=== PATIENT | female | born 1955 | race Hispanic/Latino ===

== ENCOUNTER 2018-03-10 23:37 | Emergency (ER) | payer OTHER ==
[2018-03-11 00:50] VITALS: BMI 28.0
--- NOTE | 2018-03-11 00:53 | ED PDOC ---
Arrival/HPI - General Historian: Patient - History of Present Illness Time/Duration: Other (7PM last night) Symptom Onset: Gradual Symptom Course: Unchanged Activities at Onset: Light Context: Home - General Chief Complaint: Female Genitourinary Time Seen by Provider: 03/10/18 23:58 - History of Present Illness Narrative History of Present Illness (Text): 03/11/18 00:47 62 year old female, whose past medical history includes hypertension, hyperlipidemia, hyperthyroidism, and chronic herpes on chronic suppressive therapy on Valtrex, presents to the emergency department complaining of urinary frequency and urinary urgency that began 7pm last night. Patient states this feels like her usual UTI. Patient does not have any flank or abdominal pain. Patient is not on any blood thinners or anti-coagulants. Patient denies any fever, chills, or any other complaints. (Salvador Roberts) Past Medical History - Provider Review Nursing Documentation Reviewed: Yes - Infectious Disease Hx of Infectious Diseases: None - Cardiac Hx Cardiac Disorders: Yes Hx Hypertension: Yes - Pulmonary Hx Respiratory Disorders: No - Neurological Hx Neurological Disorder: No - HEENT Hx HEENT Disorder: No - Renal Hx Renal Disorder: No - Endocrine/Metabolic Hx Endocrine Disorders: Yes Hx Hypothyroidism: Yes - Hematological/Oncological Hx Blood Disorders: No - Integumentary Hx Dermatological Disorder: No - Musculoskeletal/Rheumatological Hx Musculoskeletal Disorders: No - Gastrointestinal Hx Gastrointestinal Disorders: No - Genitourinary/Gynecological Hx Genitourinary Disorders: Yes Hx Urinary Tract Infection: Yes Other/Comment: Herpes - Psychiatric Hx Psychophysiologic Disorder: No Hx Substance Use: No Family/Social History - Physician Review Nursing Documentation Reviewed: Yes Family/Social History: No Known Family HX Smoking Status: Never Smoked Hx Alcohol Use: Yes Frequency of alcohol use: Socially Hx Substance Use: No Allergies/Home Meds Allergies/Adverse Reactions: Allergies No Known Allergies Allergy (Verified 03/11/18 00:49) Home Medications: Home Meds Medication Instructions Recorded Confirmed Hydrochlorothiazide [Microzide] 12.5 mg PO DAILY 03/11/18 03/11/18 Levothyroxine [Synthroid] 100 mcg PO DAILY 03/11/18 03/11/18 Metoprolol Succinate XL [Toprol XL] 50 mg PO DAILY 03/11/18 03/11/18 valACYclovir [Valtrex] 500 mg PO DAILY 03/11/18 03/11/18 Review of Systems - Physician Review All systems were reviewed & negative as marked: Yes - Review of Systems Constitutional: absent: Fatigue, Fevers Eyes: absent: Vision Changes ENT: absent: Hearing Changes, Rhinorrhea Respiratory: absent: SOB, Cough, Sputum Cardiovascular: absent: Chest Pain Gastrointestinal: absent: Abdominal Pain, Nausea, Vomiting Genitourinary Female: Frequency, Other (Urinary urgency). absent: Vaginal Bleeding, Vaginal Discharge Musculoskeletal: absent: Arthralgias, Back Pain Skin: absent: Rash, Pruritis Neurological: absent: Headache, Dizziness Physical Exam Vital Signs Reviewed: Yes Temperature: Afebrile Blood Pressure: Hypertensive Pulse: Regular Respiratory Rate: Normal Appearance: Positive for: Well-Appearing, Non-Toxic, Comfortable Pain Distress: None Mental Status: Positive for: Alert and Oriented X 3 - Systems Exam Head: Present: Atraumatic, Normocephalic Pupils: Present: PERRL Extroacular Muscles: Present: EOMI Conjunctiva: Present: Normal Mouth: Present: Moist Mucous Membranes Neck: Present: Normal Range of Motion Respiratory/Chest: Present: Clear to Auscultation, Good Air Exchange. No: Respiratory Distress, Accessory Muscle Use Cardiovascular: Present: Regular Rate and Rhythm, Normal S1, S2. No: Murmurs Abdomen: No: Tenderness, Distention, Peritoneal Signs, Rebound, Guarding Back: Present: Normal Inspection Upper Extremity: Present: Normal Inspection. No: Cyanosis, Edema Lower Extremity: Present: Normal Inspection. No: Edema Neurological: Present: GCS=15, CN II-XII Intact, Speech Normal Skin: Present: Warm, Dry, Normal Color. No: Rashes Psychiatric: Present: Alert, Oriented x 3, Normal Insight, Normal Concentration Vital Signs Temp Pulse Resp BP Pulse Ox 03/11/18 02:37 98.3 F 72 17 150/74 100 03/11/18 02:30 98.3 F 72 17 150/74 100 03/11/18 00:56 98.3 F 70 16 161/93 H 99 Medical Decision Making - Lab Interpretations I have reviewed the lab results: Yes ED Course and Treatment: 03/11/18 00:54 Impression: 62 year old female presents complaining of urinary frequency and urinary urgency that began 7PM yesterday. Patient reports symptoms similar to her usual UTI Plan: -- Urinalysis -- Reassess and disposition Progress Notes: 03/11/18 01:47 -UA show +UTI -Rocephine 1gm IM ordered -Discharge home with keflex/pyridium, stay hydrated, follow up with your own pmd and urologist within 2 days, return to the ER for any new or worsening signs or symptoms. (Salvador Roberts) - Lab Interpretations Lab Results: Lab Results 03/11/18 00:57: Urine Color Red, Urine Appearance Bloody, Urine pH 7.0, Ur Specific Gates 1.010, Urine Protein >=300 H, Urine Glucose (UA) 100 H, Urine Ketones Trace H, Urine Blood Large H, Urine Nitrate Positive H, Urine Bilirubin Moderate H, Urine Urobilinogen 2.0 H, Ur Leukocyte Esterase Large H, Urine RBC Tntc, Urine WBC Tntc, Ur Epithelial Cells 6 - 8, Urine Bacteria Many, Urine Other Mucus - Medication Orders Current Medication Orders: Discontinued Medications Ceftriaxone Sodium (Rocephin) 1 gm IM STAT STA PRN Reason: Protocol Stop: 03/11/18 01:42 Last Admin: 03/11/18 02:27 Dose: 1 gm IM Administration Charges Document 03/11/18 02:27 OCS (Rec: 03/11/18 02:27 OCS [facility]) Injection Site MAR Injection Site Right Gluteus Medius Charges for Administration # of IM Administrations 1 - PA / CHART COLLECTOR / Resident Statement MD/DO has reviewed & agrees with the documentation as recorded. - Scribe Statement The provider has reviewed the documentation as recorded by the Scribe - Scribe Statement Roland Padilla Provider Scribe Attestation: All medical record entries made by the Scribe were at my direction and personally dictated by me. I have reviewed the chart and agree that the record accurately reflects my personal performance of the history, physical exam, medical decision making, and the department course for this patient. I have also personally directed, reviewed, and agree with the discharge instructions and disposition. (Salvador Roberts) Disposition/Present on Arrival - Present on Arrival Any Indicators Present on Arrival: No History of DVT/PE: No History of Uncontrolled Diabetes: No Urinary Catheter: No History of Decub. Ulcer: No History Surgical Site Infection Following: None - Disposition Have Diagnosis and Disposition been Completed?: Yes Disposition Time: 01:49 Patient Plan: Discharge - Disposition Diagnosis: UTI (urinary tract infection) Disposition: HOME/ ROUTINE Condition: GOOD Additional Instructions: -Discharge home with keflex/pyridium, stay hydrated, follow up with your own pmd and urologist within 2 days, return to the ER for any new or worsening signs or symptoms. Prescriptions: Cephalexin [cephalexin] 500 mg PO TID #21 cap Phenazopyridine HCl [Pyridium] 200 mg PO TID #6 tablet Referrals: Shelley Pandya MD [Staff Provider] - Follow up with primary [facility] [Outside] - Follow up with primary Silvia Good MD [Medical Doctor] - Follow up with primary Forms: [facility] (Mongolian), WORK NOTE
[2018-03-11 00:56] VITALS: TEMP 98.3
[2018-03-11 01:25] LABS: URINE BILIRUBIN MODERATE (NEGATIVE); URINE BLOOD LARGE (NEGATIVE); URINE GLUCOSE (UA) 100 mg/dL (NEGATIVE); URINE LEUKOCYTE ESTERASE LARGE Leu/uL (NEGATIVE); URINE PROTEIN >=300 mg/dL (<30 mg/dL)
[2018-03-11 01:34] LABS: URINE APPEARANCE BLOODY (CLEAR); URINE COLOR RED (YELLOW)
[2018-03-11 01:38] LABS: URINE RBC TNTC /hpf (0-2); URINE WBC TNTC /hpf (0-6)
[2018-03-11 01:39] LABS: URINE BACTERIA MANY (NEG)
[2018-03-11] MEDS ORDERED: cefTRIAXone (Rocephin) 1 gm Inj IM STA (01:41)
[2018-03-11 02:46] VITALS: BP 150/74; PULSE 72; RESP 17; O2SAT 100
== END 2018-03-11 02:37 | disposition home or self-care (01) ==
LOC: ED 23:37
DX: N39.0 Urinary tract infection, site not specified (principal); I10 Essential (primary) hypertension; E78.5 Hyperlipidemia, unspecified; E05.90 Thyrotoxicosis, unspecified without thyrotoxic crisis or storm
CPT/HCPCS: 81001; 87086; 96372; 99283; J0696